=== PATIENT | female | born 1965 | race Caucasian/White ===

== ENCOUNTER 2020-01-12 08:21 | Observation (INO) ==
[~2020-01-12 08:21] MED LIST: Buffered Lidocaine 1% SYRIN 1 ml INTRADERM ONE; Famotidine IV 10 MG/ML 2 ml VIAL (20 mg) IV ONE; Lactated Ringers 1000 ml BAG 1,000 ML IV SCH; Sodium Citrate/Citric Acid LIQ 15 ML UDC PO ONE
[2020-01-12] MEDS ORDERED: Buffered Lidocaine 1% SYRIN 1 ml INTRADERM ONE (08:49)
[2020-01-12] MEDS ORDERED: Sodium Citrate/Citric Acid LIQ 15 ML UDC ONE (08:49)
[2020-01-12] MEDS ORDERED: ceFAZolin 2 GM PREMIX 2 GM/50 ML BAG ONE (08:49)
[2020-01-12] MEDS ORDERED: Famotidine IV 10 MG/ML 2 ml VIAL (20 mg) ONE (08:50)
[2020-01-12] MEDS ORDERED: Midazolam 5 mg/5 ml VIAL 1 mg/ml 5 ml VIAL (5 mg) ONE (09:10)
[2020-01-12] MEDS ORDERED: Phenylephrine 40 mcg/mL 10mL (400mcg) SYRINGE ONE (09:14)
[2020-01-12] MEDS ORDERED: Bupivacaine 0.5% SDV PF 30ML VIAL ONE (09:14)
[2020-01-12] MEDS ORDERED: Lidocaine 1% MPF 5 ML VIAL ONE (09:54)
[2020-01-12] MEDS ORDERED: ROPIVACAINE 5 MG/ML 30 ML BTL (0.5%) ONE ×2 (09:55→10:12)
[2020-01-12] MEDS ORDERED: Propofol 10 MG/ML 20 ML BTL ONE (11:41)
[2020-01-12] MEDS ORDERED: Ondansetron 4 mg VIAL 2 MG/ML 2 ml VIAL IV PRN (13:26)
[2020-01-12] MEDS ORDERED: Magnesium Hydroxide LIQ 30 ML UDC PO PRN (13:26)
[2020-01-12] MEDS ORDERED: oxyCODONE/Acetamin 5/325 mg TAB PO PRN (13:26)
[2020-01-12] MEDS ORDERED: Lactulose 30 ml UDC PO PRN (13:26)
[2020-01-12] MEDS ORDERED: Ondansetron ODT 4 mg TAB 4 MG TAB PO PRN (13:26)
[2020-01-12] MEDS ORDERED: diPHENhydraMINE IV 50 MG/ML 1 ml VIAL (BENADRYL) IV PRN (13:26)
[2020-01-12] MEDS ORDERED: diPHENhydraMINE 25 mg TAB PO PRN (13:26)
[2020-01-12] MEDS ORDERED: ceFAZolin 1 GM ADVAN 1 GM in NS 0.9% 50 ML 50 ML IVPB SCH (14:00)
[2020-01-12] MEDS ORDERED: Lactated Ringers 1000 ml BAG 1,000 ML IV SCH (14:00)
[2020-01-12] MEDS: oxyCODONE/Acetamin 5/325 mg TAB PO PRN ×2 (16:25→20:48)
[2020-01-12] MEDS: ceFAZolin 1 GM ADVAN 1 GM in NS 0.9% 50 ML 50 ML IVPB SCH (17:43)
[2020-01-12] MEDS: Magnesium Hydroxide LIQ 30 ML UDC PO SCH (20:27)
[2020-01-13] MEDS ORDERED: Polyethylene Glycol 3350 17 GM PACKET PO PRN (00:01)
[2020-01-13] MEDS: ceFAZolin 1 GM ADVAN 1 GM in NS 0.9% 50 ML 50 ML IVPB SCH ×2 (03:21→10:26)
[2020-01-13] MEDS: oxyCODONE/Acetamin 5/325 mg TAB PO PRN ×3 (03:22→14:55)
[2020-01-13 06:14] LABS: Hematocrit 34 % (35-47); Hemoglobin 11.4 g/dL (12.0-16.0); Mean Platelet Volume 7.4 fL (7.4-10.4); Platelet Count 219 10^3/uL (150-450)
[2020-01-13 06:33] LABS: BUN/Creatinine Ratio 19.8 (8-20); Calcium 9.3 mg/dL (8.6-10.3); EGFR African American 88.5 (>60); EGFR Non-African American 73.1 (>60); Potassium 4.6 mmol/L (3.5-5.0)
[2020-01-13] MEDS: Magnesium Hydroxide LIQ 30 ML UDC PO SCH (08:53)
[2020-01-13] MEDS ORDERED: Vitamin THERAPEUTIC TAB PO SCH (09:00)
[2020-01-13 11:50] VITALS: BP 140/88
== END 2020-01-13 15:30 | disposition home or self-care (01) ==
LOC: SSU 08:21 → OR 08:21
PROVIDERS: ADMIT Orthopaedic Surgery Adult Reconstructive Orthopaedic Surgery; ATTEND Orthopaedic Surgery Adult Reconstructive Orthopaedic Surgery

== ENCOUNTER 2020-05-03 05:41 | Observation (INO) ==
[2020-05-03] MEDS ORDERED: Buffered Lidocaine 1% SYRIN 1 ml INTRADERM ONE (06:00)
[2020-05-03] MEDS ORDERED: Lactated Ringers 1000 ml BAG 1,000 ML IV SCH ×2 (06:00→10:00)
[2020-05-03] MEDS ORDERED: ceFAZolin 2 GM PREMIX 2 GM/50 ML BAG ONE (06:14)
[2020-05-03] MEDS ORDERED: ceFAZolin 1 GM ADVAN 1 GM ADDV.VIAL IVPB ONE (06:14)
[2020-05-03] MEDS ORDERED: Midazolam 2 mg/2 ml VIAL 1 mg/ml 2 ml VIAL (2 mg) ONE (06:51)
[2020-05-03] MEDS ORDERED: Bupivacaine 0.25% SDV 30 ML ONE (06:58)
[2020-05-03] MEDS ORDERED: Glycopyrrolate IV 0.2 MG/ML 1 ML VIAL ONE (07:05)
[2020-05-03] MEDS ORDERED: Ketamine HCL 50 mg/ml 10 ml VIAL (500 MG) ONE (07:05)
[2020-05-03] MEDS ORDERED: Propofol 10 MG/ML 20 ML BTL ONE (07:05)
[2020-05-03] MEDS ORDERED: Phenylephrine 40 mcg/mL 10mL (400mcg) SYRINGE ONE ×2 (07:42→07:52)
[2020-05-03] MEDS ORDERED: Phenylephrine IV 10 MG/ML 1 ml VIAL ONE ×2 (07:52→08:34)
[2020-05-03] MEDS ORDERED: fentaNYL 100 mcg/2 ml 50 MCG/ML VIAL IV PRN (08:13)
[2020-05-03] MEDS ORDERED: Naloxone 0.4 mg VIAL 0.4 mg/ml 1 ml VIAL IV PRN (08:13)
[2020-05-03] MEDS ORDERED: Acetaminophen IV 1 GM/100ML 1,000 MG/100 ML VIAL IVPB PRN (08:13)
[2020-05-03] MEDS ORDERED: Ondansetron 4 mg VIAL 2 MG/ML 2 ml VIAL IV PRN ×2 (08:13→09:32)
[2020-05-03] MEDS ORDERED: Ondansetron ODT 4 mg TAB 4 MG TAB PO PRN (09:32)
[2020-05-03] MEDS ORDERED: Magnesium Hydroxide LIQ 30 ML UDC PO PRN (09:32)
[2020-05-03] MEDS ORDERED: Lactulose 30 ml UDC PO PRN (09:32)
[2020-05-03] MEDS ORDERED: diPHENhydraMINE IV 50 MG/ML 1 ml VIAL (BENADRYL) IV PRN (09:32)
[2020-05-03] MEDS ORDERED: diPHENhydraMINE 25 mg TAB PO PRN (09:32)
[2020-05-03] MEDS ORDERED: Prochlorperazine 5 mg/ml 2 ml VIAL (10 mg) IV PRN (11:44)
[2020-05-03] MEDS: ceFAZolin 1 GM ADVAN 1 GM in NS 0.9% 50 ML 50 ML IVPB SCH ×2 (15:05→23:45)
[2020-05-03] MEDS: Magnesium Hydroxide LIQ 30 ML UDC PO SCH (20:44)
[2020-05-04 05:25] LABS: Mean Platelet Volume 7.5 fL (7.4-10.4); Platelet Count 220 10^3/uL (150-450)
[2020-05-04] MEDS: ceFAZolin 1 GM ADVAN 1 GM in NS 0.9% 50 ML 50 ML IVPB SCH (07:47)
[2020-05-04] MEDS: Vitamin THERAPEUTIC TAB PO SCH (08:08)
[2020-05-04] MEDS: Magnesium Hydroxide LIQ 30 ML UDC PO SCH ×2 (08:12→21:13)
[2020-05-04] MEDS: Enoxaparin 40 MG/0.4 ML SYR SUBCUT SCH (10:32)
[2020-05-05 06:04] LABS: Hematocrit 33 % (35-47); Hemoglobin 10.6 g/dL (12.0-16.0); Mean Platelet Volume 7.5 fL (7.4-10.4); Platelet Count 220 10^3/uL (150-450)
[2020-05-05 06:19] LABS: BUN/Creatinine Ratio 20.5 (8-20); Calcium 8.9 mg/dL (8.6-10.3); EGFR African American 57.9 (>60); EGFR Non-African American 47.8 (>60)
[2020-05-05 06:32] LABS: Potassium 5.1 mmol/L (3.5-5.0)
[2020-05-05] MEDS: Vitamin THERAPEUTIC TAB PO SCH (08:30)
[2020-05-05] MEDS: Magnesium Hydroxide LIQ 30 ML UDC PO SCH ×2 (08:32→21:57)
[2020-05-05] MEDS: Enoxaparin 40 MG/0.4 ML SYR SUBCUT SCH (09:56)
[2020-05-06 05:19] LABS: Mean Platelet Volume 7.7 fL (7.4-10.4); Platelet Count 206 10^3/uL (150-450)
[2020-05-06] MEDS: Magnesium Hydroxide LIQ 30 ML UDC PO SCH (09:00)
[2020-05-06] MEDS: Vitamin THERAPEUTIC TAB PO SCH (09:01)
[2020-05-06] MEDS: Enoxaparin 40 MG/0.4 ML SYR SUBCUT SCH (09:02)
[2020-05-06 15:13] VITALS: BP 126/58
== END 2020-05-06 17:00 ==
LOC: OR 05:41 → INTOOBSV 11:06 → SSU 11:06
PROVIDERS: ADMIT Orthopaedic Surgery; ATTEND Orthopaedic Surgery

== ENCOUNTER 2020-05-06 14:59 | Inpatient (IN) ==
[2020-05-06] MEDS: Enoxaparin 40 MG/0.4 ML SYR SUBCUT SCH (22:47)
[2020-05-07 07:02] LABS: ABS Eosinophils 0.2 10^3/ul (0-0.6); ABS Monocytes 0.5 10^3/ul (0-0.8); ABS Neutrophils 3.8 10^3/ul (1.5-7.7); Eosinophil % 3.6 %; Hematocrit 31 % (35-47); Hemoglobin 10.3 g/dL (12.0-16.0); Lymphocyte % 17.1 %; Mean Corpuscular HGB Conc 33 g/dL (31-36); Mean Corpuscular Hemoglobin 32 pg (27-31); Mean Corpuscular Volume 98 fL (80-97); Mean Platelet Volume 7.4 fL (7.4-10.4); Platelet Count 218 10^3/uL (150-450); Red Blood Count 3.21 10^6 /uL (3.70-4.87); Red Cell Distribution Width 16 % (10-15); White Blood Count 5.6 10^3/uL (3.5-10.8)
[2020-05-07 07:27] LABS: Albumin 3.5 g/dL (3.2-5.2); Albumin/Globulin Ratio 1.3 (1-3); BUN/Creatinine Ratio 23.4 (8-20); Calcium 8.9 mg/dL (8.6-10.3); EGFR African American 74.5 (>60); EGFR Non-African American 61.6 (>60); Globulin 2.6 g/dL (2-4); Magnesium 2.2 mg/dL (1.9-2.7); Potassium 4.7 mmol/L (3.5-5.0); Total Bilirubin 0.3 mg/dL (0.2-1.0); Total Protein 6.1 g/dL (6.4-8.9)
[2020-05-07] MEDS: Cholecalciferol (VIT D3) 1,000 unit TAB PO SCH (09:00)
[2020-05-07] MEDS: Multivitamins/Minerals TAB PO SCH (09:01)
[2020-05-07] MEDS: Enoxaparin 40 MG/0.4 ML SYR SUBCUT SCH (09:01)
[2020-05-08] MEDS: Enoxaparin 40 MG/0.4 ML SYR SUBCUT SCH (08:26)
[2020-05-08] MEDS: Cholecalciferol (VIT D3) 1,000 unit TAB PO SCH (08:27)
[2020-05-08] MEDS: Multivitamins/Minerals TAB PO SCH (08:30)
[2020-05-09] MEDS: Enoxaparin 40 MG/0.4 ML SYR SUBCUT SCH (09:45)
[2020-05-09] MEDS: Cholecalciferol (VIT D3) 1,000 unit TAB PO SCH (09:45)
[2020-05-09] MEDS: Multivitamins/Minerals TAB PO SCH (09:46)
[2020-05-09] MEDS ORDERED: Magnesium Hydroxide LIQ 30 ML UDC PO ONE (18:08)
[2020-05-10] MEDS: Multivitamins/Minerals TAB PO SCH (09:12)
[2020-05-10] MEDS: Cholecalciferol (VIT D3) 1,000 unit TAB PO SCH (09:15)
[2020-05-10] MEDS: Enoxaparin 40 MG/0.4 ML SYR SUBCUT SCH (09:17)
[2020-05-11] MEDS: Multivitamins/Minerals TAB PO SCH (09:31)
[2020-05-11] MEDS: Enoxaparin 40 MG/0.4 ML SYR SUBCUT SCH (09:35)
[2020-05-11] MEDS: Cholecalciferol (VIT D3) 1,000 unit TAB PO SCH (12:02)
[2020-05-12] MEDS: Cholecalciferol (VIT D3) 1,000 unit TAB PO SCH (08:26)
[2020-05-12] MEDS: Multivitamins/Minerals TAB PO SCH (08:28)
[2020-05-12] MEDS: Enoxaparin 40 MG/0.4 ML SYR SUBCUT SCH (08:30)
[2020-05-13 04:22] LABS: ABS Eosinophils 0.3 10^3/ul (0-0.6); ABS Lymphocytes 1.3 10^3/ul (1.0-4.8); ABS Monocytes 0.8 10^3/ul (0-0.8); ABS Neutrophils 4.4 10^3/ul (1.5-7.7); Eosinophil % 4.9 %; Hematocrit 32 % (35-47); Hemoglobin 10.3 g/dL (12.0-16.0); Lymphocyte % 18.4 %; Mean Corpuscular HGB Conc 33 g/dL (31-36); Mean Corpuscular Hemoglobin 31 pg (27-31); Mean Corpuscular Volume 97 fL (80-97); Mean Platelet Volume 6.9 fL (7.4-10.4); Platelet Count 290 10^3/uL (150-450); Red Blood Count 3.28 10^6 /uL (3.70-4.87); Red Cell Distribution Width 16 % (10-15); White Blood Count 6.8 10^3/uL (3.5-10.8)
[2020-05-13 04:38] LABS: Albumin 3.7 g/dL (3.2-5.2); Albumin/Globulin Ratio 1.5 (1-3); BUN/Creatinine Ratio 32.6 (8-20); Calcium 9.1 mg/dL (8.6-10.3); EGFR African American 76.4 (>60); EGFR Non-African American 63.1 (>60); Globulin 2.5 g/dL (2-4); Potassium 4.8 mmol/L (3.5-5.0); Total Bilirubin 0.2 mg/dL (0.2-1.0); Total Protein 6.2 g/dL (6.4-8.9)
[2020-05-13] MEDS: Enoxaparin 40 MG/0.4 ML SYR SUBCUT SCH (08:59)
[2020-05-13] MEDS: Multivitamins/Minerals TAB PO SCH (09:00)
[2020-05-13] MEDS: Cholecalciferol (VIT D3) 1,000 unit TAB PO SCH (09:00)
[2020-05-14] MEDS: Enoxaparin 40 MG/0.4 ML SYR SUBCUT SCH (09:15)
[2020-05-14] MEDS: Cholecalciferol (VIT D3) 1,000 unit TAB PO SCH (09:15)
[2020-05-14] MEDS: Multivitamins/Minerals TAB PO SCH (09:25)
[2020-05-15] MEDS: Cholecalciferol (VIT D3) 1,000 unit TAB PO SCH (08:32)
[2020-05-15] MEDS: Multivitamins/Minerals TAB PO SCH (08:33)
[2020-05-15] MEDS: Enoxaparin 40 MG/0.4 ML SYR SUBCUT SCH (08:33)
[2020-05-16] MEDS: Multivitamins/Minerals TAB PO SCH (08:14)
[2020-05-16] MEDS: Enoxaparin 40 MG/0.4 ML SYR SUBCUT SCH (08:14)
[2020-05-16] MEDS: Cholecalciferol (VIT D3) 1,000 unit TAB PO SCH (08:14)
[2020-05-17 04:12] VITALS: BP 146/62
[2020-05-17] MEDS: Cholecalciferol (VIT D3) 1,000 unit TAB PO SCH (09:11)
[2020-05-17] MEDS: Multivitamins/Minerals TAB PO SCH (09:14)
[2020-05-17] MEDS: Enoxaparin 40 MG/0.4 ML SYR SUBCUT SCH (09:17)
== END 2020-05-17 16:00 | disposition home health service (06) | DRG 560 ==
LOC: PMRU 17:01
PROVIDERS: ADMIT Physical Medicine & Rehabilitation; ATTEND Physical Medicine & Rehabilitation

== ENCOUNTER 2020-07-21 09:21 | Observation (INO) ==
[~2020-07-21 09:21] MED LIST changes: -Famotidine IV 10 MG/ML 2 ml VIAL (20 mg) IV ONE; -Sodium Citrate/Citric Acid LIQ 15 ML UDC PO ONE
[2020-07-21] MEDS ORDERED: ceFAZolin 1 GM ADVAN 1 GM ADDV.VIAL IVPB ONE (09:35)
[2020-07-21] MEDS ORDERED: ceFAZolin 2 GM PREMIX 2 GM/50 ML BAG ONE (09:36)
[2020-07-21] MEDS ORDERED: Bupivacaine 0.25% SDV PF 10 ML VIAL INJ ONE (09:56)
[2020-07-21] MEDS ORDERED: Midazolam 2 mg/2 ml VIAL 1 mg/ml 2 ml VIAL (2 mg) ONE (09:56)
[2020-07-21] MEDS ORDERED: Bupivacaine 0.5% SDV PF 30ML VIAL ONE (09:56)
[2020-07-21] MEDS ORDERED: fentaNYL 100 mcg/2 ml 50 MCG/ML VIAL ONE (09:56)
[2020-07-21] MEDS ORDERED: Lactated Ringers 1000 ml BAG 1,000 ML IV SCH (10:00)
[2020-07-21] MEDS ORDERED: Propofol 10 MG/ML 20 ML BTL ONE (10:12)
[2020-07-21] MEDS ORDERED: Rocuronium 50 mg VIAL 10 mg/ml 5 ml VIAL (50 mg) ONE ×3 (11:12→11:56)
[2020-07-21] MEDS ORDERED: fentaNYL 250 mcg/5 ml 50 MCG/ML 5 ml VIAL (250 MCG) ONE (11:22)
[2020-07-21] MEDS ORDERED: Ondansetron 4 mg VIAL 2 MG/ML 2 ml VIAL ONE (11:37)
[2020-07-21] MEDS ORDERED: Dexamethasone IV 4 MG/ML VIAL 1 ml VIAL ONE (11:37)
[2020-07-21] MEDS ORDERED: HYDROmorphone 1 MG/1 ML SYRINGE ONE ×2 (11:58→14:41)
[2020-07-21] MEDS ORDERED: fentaNYL 100 mcg/2 ml 50 MCG/ML VIAL IV PRN (12:14)
[2020-07-21] MEDS ORDERED: Naloxone 0.4 mg VIAL 0.4 mg/ml 1 ml VIAL IV PRN (12:14)
[2020-07-21] MEDS ORDERED: Ketamine HCL 50 mg/ml 10 ml VIAL (500 MG) ONE (12:16)
[2020-07-21] MEDS ORDERED: Magnesium Hydroxide LIQ 30 ML UDC PO PRN (13:55)
[2020-07-21] MEDS ORDERED: Lactulose 30 ml UDC PO PRN (13:55)
[2020-07-21] MEDS ORDERED: Ondansetron ODT 4 mg TAB 4 MG TAB PO PRN (13:55)
[2020-07-21] MEDS ORDERED: diPHENhydraMINE 25 mg TAB PO PRN (13:55)
[2020-07-21] MEDS ORDERED: diPHENhydraMINE IV 50 MG/ML 1 ml VIAL (BENADRYL) IV PRN (13:55)
[2020-07-21] MEDS ORDERED: Ondansetron 4 mg VIAL 2 MG/ML 2 ml VIAL IV PRN (13:55)
[2020-07-21] MEDS ORDERED: Morphine 2 MG/ML SYRINGE IV PRN (14:03)
[2020-07-21] MEDS: HYDROmorphone 1 MG/1 ML SYRINGE IV PRN ×5 (14:43→15:15)
[2020-07-21] MEDS: Lactated Ringers 1000 ml BAG 1,000 ML IV SCH (15:56)
[2020-07-21] MEDS: ceFAZolin 1 GM ADVAN 1 GM in NS 0.9% 50 ML 50 ML IVPB SCH (19:22)
[2020-07-21] MEDS: Magnesium Hydroxide LIQ 30 ML UDC PO SCH (21:02)
[2020-07-22] MEDS: ceFAZolin 1 GM ADVAN 1 GM in NS 0.9% 50 ML 50 ML IVPB SCH ×2 (02:48→12:17)
[2020-07-22 06:38] LABS: Hematocrit 32 % (35-47); Hemoglobin 10.4 g/dL (12.0-16.0); Mean Platelet Volume 7.7 fL (7.4-10.4); Platelet Count 220 10^3/uL (150-450)
[2020-07-22 06:53] LABS: BUN/Creatinine Ratio 25.5 (8-20); Calcium 8.7 mg/dL (8.6-10.3); EGFR African American 67.8 (>60); EGFR Non-African American 56.1 (>60); Potassium 4.3 mmol/L (3.5-5.0)
[2020-07-22] MEDS: Lactated Ringers 1000 ml BAG 1,000 ML IV SCH (07:57)
[2020-07-22] MEDS: Magnesium Hydroxide LIQ 30 ML UDC PO SCH (07:59)
[2020-07-22] MEDS ORDERED: Vitamin THERAPEUTIC TAB PO SCH (09:00)
[2020-07-22 11:26] VITALS: BP 103/55
[2020-07-22] MEDS ORDERED: Enoxaparin 40 MG/0.4 ML SYR SUBCUT SCH (12:00)
== END 2020-07-22 16:30 | disposition home or self-care (01) ==
LOC: OR 09:21 → SSU 13:56 → INTOOBSV 13:56
PROVIDERS: ADMIT Orthopaedic Surgery; ATTEND Orthopaedic Surgery

== ENCOUNTER 2020-09-13 11:16 | Observation (INO) ==
[~2020-09-13 11:16] MED LIST changes: +DiMENhydriNATE IV 50 mg/ml 1 ml VIAL IV PUSH ONE; +HYDROcodone/ACETAMIN 5/325 mg TAB PO PRN; -Lactated Ringers 1000 ml BAG 1,000 ML IV SCH; +Metoclopramide 5 MG/ML VIAL (10 mg) IV PRN; +Naloxone 0.4 mg VIAL 0.4 mg/ml 1 ml VIAL IV PRN; +Ondansetron 4 mg VIAL 2 MG/ML 2 ml VIAL IV PRN; +fentaNYL 100 mcg/2 ml 50 MCG/ML VIAL IV PRN
[2020-09-13] MEDS ORDERED: ceFAZolin 2 GM PREMIX 2 GM/50 ML BAG ONE (12:10)
[2020-09-13] MEDS ORDERED: DiMENhydriNATE IV 50 mg/ml 1 ml VIAL ONE (12:10)
[2020-09-13] MEDS ORDERED: ceFAZolin 1 GM ADVAN 1 GM ADDV.VIAL IVPB ONE (12:14)
[2020-09-13] MEDS ORDERED: Midazolam 2 mg/2 ml VIAL 1 mg/ml 2 ml VIAL (2 mg) ONE (12:36)
[2020-09-13] MEDS ORDERED: Propofol 10 MG/ML 20 ML BTL ONE (12:36)
[2020-09-13] MEDS ORDERED: fentaNYL 100 mcg/2 ml 50 MCG/ML VIAL ONE (12:36)
[2020-09-13] MEDS ORDERED: Lidocaine 2% PF 5 ML VIAL ONE (12:39)
[2020-09-13] MEDS: Lactated Ringers 1000 ml BAG 1,000 ML IV SCH ×2 (13:14→17:49)
[2020-09-13] MEDS ORDERED: Bupivacaine 0.25% SDV 30 ML ONE (15:32)
[2020-09-13] MEDS ORDERED: Lactulose 30 ml UDC PO PRN (15:54)
[2020-09-13] MEDS ORDERED: diPHENhydraMINE IV 50 MG/ML 1 ml VIAL (BENADRYL) IV PRN (15:54)
[2020-09-13] MEDS ORDERED: Ondansetron ODT 4 mg TAB 4 MG TAB PO PRN (15:54)
[2020-09-13] MEDS ORDERED: Ondansetron 4 mg VIAL 2 MG/ML 2 ml VIAL IV PRN (15:54)
[2020-09-13] MEDS ORDERED: Magnesium Hydroxide LIQ 30 ML UDC PO PRN (15:54)
[2020-09-13] MEDS ORDERED: Morphine 2 MG/ML SYRINGE IV PRN (15:54)
[2020-09-13] MEDS ORDERED: Ondansetron 4 mg VIAL 2 MG/ML 2 ml VIAL ONE (16:05)
[2020-09-13] MEDS ORDERED: Dexamethasone IV 4 MG/ML VIAL 1 ml VIAL ONE (16:05)
[2020-09-13] MEDS ORDERED: Phenylephrine 40 mcg/mL 10mL (400mcg) SYRINGE ONE (16:24)
[2020-09-13] MEDS: Magnesium Hydroxide LIQ 30 ML UDC PO SCH (21:57)
[2020-09-13] MEDS: ceFAZolin 1 GM ADVAN 1 GM in NS 0.9% 50 ML 50 ML IVPB SCH (23:45)
[2020-09-14] MEDS: Lactated Ringers 1000 ml BAG 1,000 ML IV SCH ×2 (02:31→13:33)
[2020-09-14 05:08] LABS: Hematocrit 34 % (35-47); Hemoglobin 10.9 g/dL (12.0-16.0); Mean Platelet Volume 7.4 fL (7.4-10.4); Platelet Count 306 10^3/uL (150-450)
[2020-09-14 05:28] LABS: EGFR Non-African American 58.7 (>60); Potassium 4.8 mmol/L (3.5-5.0)
[2020-09-14] MEDS: Magnesium Hydroxide LIQ 30 ML UDC PO SCH ×2 (08:28→21:28)
[2020-09-14] MEDS: Vitamin THERAPEUTIC TAB PO SCH (08:30)
[2020-09-14] MEDS: ceFAZolin 1 GM ADVAN 1 GM in NS 0.9% 50 ML 50 ML IVPB SCH ×2 (08:30→16:22)
[2020-09-14 12:14] LABS: C Reactive Protein 37.66 mg/L (<8.01)
[2020-09-14 13:05] LABS: ABS Eosinophils 0.1 10^3/ul (0-0.6); ABS Lymphocytes 1.2 10^3/ul (1.0-4.8); ABS Monocytes 0.7 10^3/ul (0-0.8); ABS Neutrophils 7.2 10^3/ul (1.5-7.7); Eosinophil % 0.7 %; Lymphocyte % 12.9 %; Mean Corpuscular HGB Conc 33 g/dL (31-36); Mean Corpuscular Hemoglobin 32 pg (27-31); Mean Corpuscular Volume 97 fL (80-97); Red Blood Count 3.48 10^6 /uL (3.70-4.87); Red Cell Distribution Width 16 % (10-15); White Blood Count 9.2 10^3/uL (3.5-10.8)
[2020-09-14] MEDS ORDERED: Vancomycin 2,000 MG in NS 0.9% 500 ml BAG 500 ML IVPB ONE (18:00)
[2020-09-14] MEDS ORDERED: Vancomycin per Pharmacy 1 EA NOTE FOLLOW UP PRN (21:46)
[2020-09-15 04:47] LABS: Hematocrit 34 % (35-47); Mean Platelet Volume 7.4 fL (7.4-10.4); Platelet Count 255 10^3/uL (150-450)
[2020-09-15] MEDS: Vitamin THERAPEUTIC TAB PO SCH (08:50)
[2020-09-15] MEDS: Magnesium Hydroxide LIQ 30 ML UDC PO SCH ×2 (08:51→21:40)
[2020-09-15] MEDS: Vancomycin 1,500 MG in NS 0.9% 250 ml 250 ML IVPB SCH ×2 (08:51→21:44)
[2020-09-15] MEDS: diPHENhydraMINE 25 mg TAB PO PRN ×2 (14:41→21:48)
[2020-09-16 05:39] LABS: Hematocrit 34 % (35-47); Hemoglobin 11.2 g/dL (12.0-16.0); Mean Platelet Volume 7.5 fL (7.4-10.4); Platelet Count 233 10^3/uL (150-450)
[2020-09-16] MEDS ORDERED: Vancomycin Trough Check NOTE FOLLOW UP ONE (08:00)
[2020-09-16] MEDS: Magnesium Hydroxide LIQ 30 ML UDC PO SCH (08:17)
[2020-09-16] MEDS: Vitamin THERAPEUTIC TAB PO SCH (08:24)
[2020-09-16] MEDS: diPHENhydraMINE 25 mg TAB PO PRN (08:34)
[2020-09-16 08:48] LABS: EGFR African American 88.5 (>60); EGFR Non-African American 73.1 (>60)
[2020-09-16 09:09] LABS: Vancomycin Trough 16.3 mcg/mL
[2020-09-16] MEDS: Vancomycin 1,500 MG in NS 0.9% 250 ml 250 ML IVPB SCH (09:28)
[2020-09-16 11:07] VITALS: BP 131/84
[2020-09-16] MEDS ORDERED: Vancomycin 1,250 MG in NS 0.9% 250 ml 250 ML IVPB SCH (21:00)
[2020-09-18] MEDS ORDERED: Vancomycin Trough Check NOTE FOLLOW UP ONE (08:30)
== END 2020-09-16 15:25 | disposition home or self-care (01) ==
LOC: SSU 11:16 → OR 11:16
PROVIDERS: ADMIT Orthopaedic Surgery; ATTEND Orthopaedic Surgery

== ENCOUNTER 2021-06-06 05:55 | Observation (INO) ==
[2021-06-06] MEDS ORDERED: Famotidine IV 10 MG/ML 2 ml VIAL (20 mg) IV ONE (06:00)
[2021-06-06] MEDS ORDERED: Lactated Ringers 1000 ml BAG 1,000 ML IV SCH (06:00)
[2021-06-06] MEDS ORDERED: Buffered Lidocaine 1% SYRIN 1 ml INTRADERM ONE (06:00)
[2021-06-06] MEDS ORDERED: ceFAZolin 2 GM in NS PREMIX 2 GM/100 ML BAG IVPB ONE (06:32)
[2021-06-06] MEDS ORDERED: Famotidine IV 10 MG/ML 2 ml VIAL (20 mg) ONE (06:32)
[2021-06-06] MEDS ORDERED: Rocuronium 50 mg VIAL 10 mg/ml 5 ml VIAL (50 mg) ONE ×3 (07:03→14:52)
[2021-06-06] MEDS ORDERED: Midazolam 2 mg/2 ml VIAL 1 mg/ml 2 ml VIAL (2 mg) ONE ×2 (07:03→07:13)
[2021-06-06] MEDS ORDERED: Lidocaine 2% PF 5 ML VIAL ONE (07:03)
[2021-06-06] MEDS ORDERED: fentaNYL 100 mcg/2 ml 50 MCG/ML VIAL ONE ×2 (07:03→07:13)
[2021-06-06] MEDS ORDERED: Lidocaine 1% w EPI 1:200,000 SDV 30 ML VIAL ONE (07:15)
[2021-06-06] MEDS ORDERED: Bupivacaine 0.25% SDV 30 ML ONE (07:15)
[2021-06-06] MEDS ORDERED: ceFAZolin VIAL VIAL ONE ×3 (07:18→17:49)
[2021-06-06] MEDS ORDERED: ROPIVACAINE 5 MG/ML 30 ML BTL (0.5%) ONE (07:23)
[2021-06-06] MEDS ORDERED: Esmolol 10 MG/ML 10 ML (100 mg) ONE (08:26)
[2021-06-06] MEDS ORDERED: HYDROmorphone 0.5 MG/0.5 ML SYRINGE ONE (09:07)
[2021-06-06] MEDS ORDERED: EPHEDrine (Pressors) 50 MG/ML VIAL ONE (09:29)
[2021-06-06] MEDS ORDERED: Ondansetron 4 mg VIAL 2 MG/ML 2 ml VIAL ONE ×3 (11:14→15:17)
[2021-06-06] MEDS ORDERED: HYDROmorphone 1 MG/1 ML SYRINGE IV PRN (11:17)
[2021-06-06] MEDS ORDERED: Naloxone 0.4 mg VIAL 0.4 mg/ml 1 ml VIAL IV PRN (11:17)
[2021-06-06] MEDS ORDERED: Scopolamine 1 mg/72hr PATCH TRANSDERM PRN (11:17)
[2021-06-06] MEDS ORDERED: DiMENhydriNATE IV 50 mg/ml 1 ml VIAL IV PUSH PRN (11:17)
[2021-06-06] MEDS ORDERED: fentaNYL 100 mcg/2 ml 50 MCG/ML VIAL IV PRN (11:17)
[2021-06-06] MEDS ORDERED: Acetaminophen IV 1 GM/100ML 100 ML IV ONE (11:23)
[2021-06-06] MEDS ORDERED: Magnesium Hydroxide LIQ 30 ML UDC PO PRN (12:10)
[2021-06-06] MEDS ORDERED: Lactulose 30 ml UDC PO PRN (12:10)
[2021-06-06] MEDS ORDERED: diPHENhydraMINE 25 mg TAB PO PRN (12:10)
[2021-06-06] MEDS ORDERED: diPHENhydraMINE IV 50 MG/ML 1 ml VIAL (BENADRYL) IV PRN (12:10)
[2021-06-06] MEDS ORDERED: DiMENhydriNATE IV 50 mg/ml 1 ml VIAL ONE (12:53)
[2021-06-06] MEDS ORDERED: HYDROmorphone 1 MG/1 ML SYRINGE ONE (12:53)
[2021-06-06] MEDS: Lactated Ringers 1000 ml BAG 1,000 ML IV SCH (14:31)
[2021-06-06] MEDS ORDERED: Ondansetron 4 mg VIAL 2 MG/ML 2 ml VIAL IV PRN (14:47)
[2021-06-06] MEDS: ceFAZolin 1 GM ADVAN 1 GM in NS 0.9% 50 ML 50 ML IVPB SCH (17:30)
[2021-06-06] MEDS: Magnesium Hydroxide LIQ 30 ML UDC PO SCH (21:58)
[2021-06-07] MEDS: Lactated Ringers 1000 ml BAG 1,000 ML IV SCH (02:03)
[2021-06-07] MEDS: ceFAZolin 1 GM ADVAN 1 GM in NS 0.9% 50 ML 50 ML IVPB SCH ×2 (02:04→09:51)
[2021-06-07 06:39] LABS: Calcium 9.3 mg/dL (8.6-10.3); Potassium 4.9 mmol/L (3.5-5.0); eGFR CKD-EPI 33.6 (>60)
[2021-06-07 06:43] LABS: Hematocrit 26 % (35-47); Hemoglobin 8.8 g/dL (12.0-16.0)
[2021-06-07 08:12] LABS: Mean Platelet Volume 8.2 fL (7.4-10.4); Platelet Count 179 10^3/uL (150-450)
[2021-06-07] MEDS: Magnesium Hydroxide LIQ 30 ML UDC PO SCH (08:45)
[2021-06-07] MEDS ORDERED: Vitamin THERAPEUTIC TAB PO SCH (09:00)
[2021-06-07] MEDS ORDERED: Olmesartan 40 mg TAB (NF) PO SCH (09:00)
[2021-06-07] MEDS ORDERED: Cholecalciferol (VIT D3) 1,000 unit TAB PO SCH (09:00)
[2021-06-07 16:36] VITALS: BP 113/68
[2021-06-09] MEDS ORDERED: Scopolamine PATCH Remove NOTE PATCH OFF ONE (11:18)
== END 2021-06-07 17:00 | disposition home or self-care (01) ==
LOC: SSU → SUATTDRO 05:55 → INTOOBSV 05:55 → AA 05:55
PROVIDERS: ADMIT Orthopaedic Surgery Sports Medicine; ATTEND Orthopaedic Surgery Sports Medicine